=== PATIENT | male | born 1960 | race Caucasian/White ===

== ENCOUNTER 2024-04-09 16:28 | Inpatient (IN) | payer OTHER, MEDICAID ==
[~2024-04-09] VITALS: Ht 175.3 cm; Wt 59.4 kg
[2024-04-09 16:52] LABS: Basophils # (auto) 0.1 10 ^3/uL (0-0.2); Basophils % (auto) 1.1 % (0.0-2.0); Eosinophils # (auto) 0.2 10 ^3/uL (0-0.8); Eosinophils % (auto) 1.7 % (0.0-7.0); Hematocrit 44.3 % (41.0-53.0); Hemoglobin 14.6 g/dL (13.5-17.5); Lymphocytes # (auto) 3.5 10 ^3/uL (0.4-5.4); Lymphocytes % (auto) 35.8 % (10.0-50.0); Mean Corpuscular Hemoglobin 32.7 pg (28.0-32.0); Monocytes # (auto) 0.8 10 ^3/uL (0-1.3); Monocytes % (auto) 8.1 % (0.0-12.0); Neutrophils # (auto) 5.3 10 ^3/uL (1.6-8.6); Neutrophils % (auto) 53.3 % (37.0-80.0); Nucleated Red Blood Cells % 0.1 %; Red Blood Cells 4.47 10^6/uL (4.5-5.90); Red Cell Distribution Width 13.3 % (11.8-14.3); White Blood Cell 9.9 10^3/uL (4.4-10.8)
[2024-04-09] MEDS: ASPirin 325 MG TAB PO ONE (16:57)
[2024-04-09] MEDS: NITROGLYCERIN 0.4 MG SL TAB SL ONE (16:58)
[2024-04-09 17:05] LABS: INR 1.01 (0.9-1.15); Partial Thromboplastin Time 25.1 SEC (24.5-34.5); Prothrombin Time 10.7 sec (9.3-11.8)
[2024-04-09 17:07] LABS: Alanine Aminotransferase 14 U/L (7-40); Albumin 4.9 g/dL (3.2-4.8); Alkaline Phosphatase 79 U/L (46-116); Anion Gap 6 (5-15); Aspartate Aminotransferase 16 U/L (13-40); BUN/Creatinine Ratio 6.4 (10.0-20.0); Bilirubin, Total 0.7 mg/dL (0.2-1.0); Blood Urea Nitrogen 7 mg/dL (9-23); Calcium 10.5 mg/dL (8.7-10.4); Carbon Dioxide 23 mmol/L (20-30); Chloride 107 mmol/L (98-107); Glucose 115 mg/dL (74-106); Potassium 3.9 mmol/L (3.5-5.1); Sodium 136 mmol/L (136-145); Total Protein 7.8 g/dL (5.7-8.2)
[2024-04-09] MEDS ORDERED: MORPHINE SULFATE INJ 2 MG/ml SYRG IV PRN (17:45)
[2024-04-09] MEDS ORDERED: HYDROcodone-ACET 5/325MG TAB PO PRN (17:45)
[2024-04-09] MEDS ORDERED: NITROGLYCERIN 0.4 MG SL TAB SL PRN (17:45)
[2024-04-09] MEDS ORDERED: ONDANSETRON HCL 4 MG/2 ML VIAL IV PRN (17:45)
[2024-04-09] MEDS: LACTATED RINGER'S 1,000 ML IV ONE (18:17)
[2024-04-09 18:56] VITALS: PULSE 89; RESP 19; O2SAT 98
[2024-04-09 19:07] LABS: LDL Cholesterol 86 mg/dL (< 100); Triglycerides 92 mg/dL (< 150)
[2024-04-09 19:09] LABS: Cholesterol 166 mg/dL (< 200); HDL Cholesterol 63 mg/dL (40-59)
[2024-04-09 19:46] VITALS: PULSE 97; RESP 14; O2SAT 98
[2024-04-09 20:12] LABS: Urine Bacteria None Seen /hpf (None Seen)
[2024-04-09 20:51] LABS: Urine Blood Negative /uL (Negative); Urine Clarity Clear (Clear); Urine Color Yellow (Yellow); Urine Protein, UAD Negative (Negative); Urine Specific Gravity 1.016 (1.001-1.035); Urine Urobilinogen Normal (Negative); Urine WBC 1 /hpf (0 - 3)
[2024-04-09 21:53] VITALS: BP_SYST 141; BP_SYST 146; BP_DIAS 101; BP_DIAS 109; BP_DIAS 72; PULSE 88; PULSE 90; PULSE 93; RESP 16; RESP 18; TEMP 98.3; O2SAT 92; O2SAT 93; O2SAT 97
[2024-04-09] MEDS: HYDROmorphone HCL 2 MG/ML VL/or syr IV PRN (22:51)
[2024-04-09] MEDS: SODIUM CHLOR 0.9% PF (SALINE LOCK) 10ML VIAL/SYR IV SCH (23:04)
[2024-04-09] MEDS ORDERED: BACL10TA PO (23:50)
[2024-04-09] MEDS ORDERED: TIZA-142 PO (23:50)
[2024-04-09] MEDS ORDERED: OXYC-113 PO (23:50)
[2024-04-09] MEDS ORDERED: ATOR20TA50 PO (23:50)
[2024-04-09] MEDS ORDERED: LISI-275 PO (23:50)
[2024-04-10] VITALS (10 sets, daily range): BP systolic 117–157; BP diastolic 79–90; PULSE 78–98; RESP 17–20; TEMP 97.6–98.3; O2SAT 96–100
[2024-04-10 08:43] LABS: Basophils # (auto) 0.1 10 ^3/uL (0-0.2); Basophils % (auto) 1.2 % (0.0-2.0); Eosinophils # (auto) 0.3 10 ^3/uL (0-0.8); Eosinophils % (auto) 3.7 % (0.0-7.0); Hematocrit 38.9 % (41.0-53.0); Hemoglobin 13.2 g/dL (13.5-17.5); Lymphocytes # (auto) 3.6 10 ^3/uL (0.4-5.4); Mean Corpuscular Hemoglobin 33.5 pg (28.0-32.0); Mean Corpuscular Volume 98.6 fL (80.0-100.0); Monocytes # (auto) 0.8 10 ^3/uL (0-1.3); Monocytes % (auto) 9.4 % (0.0-12.0); Neutrophils # (auto) 3.3 10 ^3/uL (1.6-8.6); Neutrophils % (auto) 40.7 % (37.0-80.0); Nucleated Red Blood Cells % 0.1 %; Red Blood Cells 3.94 10^6/uL (4.5-5.90); Red Cell Distribution Width 12.9 % (11.8-14.3)
[2024-04-10 08:51] LABS: Chloride 107 mmol/L (98-107); Sodium 137 mmol/L (136-145)
[2024-04-10 08:52] LABS: Anion Gap 2 (5-15); Calcium 9.9 mg/dL (8.5-10.1); Carbon Dioxide 28 mmol/L (20-30)
[2024-04-10 08:57] LABS: BUN/Creatinine Ratio 8.4 (10.0-20.0); Blood Urea Nitrogen 7 mg/dL (9-23); Glucose 93 mg/dL (74-106)
[2024-04-10] MEDS: ENOXAPARIN SOD 40 MG/0.4 ML SYRINGE SC SCH (09:10)
[2024-04-10] MEDS ORDERED: IOHEXOL 350 MG/ML 100ML IJ ONE (15:51)
[2024-04-10] MEDS: ATORVASTATIN 20 MG TAB PO SCH (21:19)
[2024-04-10] MEDS: ACETAMINOPHEN 325 MG TAB PO PRN (21:21)
[2024-04-11 00:58] VITALS: BP 151/94; PULSE 89; RESP 17; TEMP 97.9; O2SAT 96
[2024-04-11 05:00] VITALS: BP 154/90; PULSE 89; RESP 17; TEMP 97.4; O2SAT 98
[2024-04-11] MEDS ORDERED: hydrALAZINE HCL 20 MG/ML VL IV PRN (07:15)
[2024-04-11 08:00] VITALS: PULSE 107
[2024-04-11 08:50] VITALS: BP 152/88; PULSE 96; RESP 20; TEMP 97.7; O2SAT 98
[2024-04-11] MEDS: LISINOPRIL 5 MG TAB PO SCH (09:23)
[2024-04-11 13:00] VITALS: BP 145/85; PULSE 87; RESP 20; TEMP 97.8; O2SAT 98
[2024-04-11] MEDS ORDERED: LISI-275 PO (13:18)
[2024-04-11 13:48] VITALS: BP 152/88; TEMP 36.5
== END 2024-04-11 16:25 | disposition home or self-care (01) | DRG 206 ==
LOC: ER 16:28 → TELE 17:44 → TELE-WESTW 17:44
PROVIDERS: ADMIT Internal Medicine; ATTEND Internal Medicine
DX: M94.0 Chondrocostal junction syndrome [Tietze] (principal); I10 Essential (primary) hypertension; E78.5 Hyperlipidemia, unspecified; G89.4 Chronic pain syndrome; F17.210 Nicotine dependence, cigarettes, uncomplicated; R00.0 Tachycardia, unspecified; Z82.49 Family history of ischemic heart disease and other diseases of the circulatory system
CPT/HCPCS: 36415; 71045; 80048; 80053; 80061; 81001; 83036; 83735; 83880; 84443; 84484; 85025; 85379; 85610; 85730; 93005; 93306; 93971; 96360; G0378